=== PATIENT | male | born 1960 | race Caucasian/White ===

== ENCOUNTER 2017-02-27 11:41 | Observation (INO) | payer MEDICARE, OTHER ==
[~2017-02-27] VITALS: Ht 165.1 cm; Wt 97.0 kg
[~2017-02-27 11:41] MED LIST: ACTOS15 MG PO; AMITIZA24 MCG PO; ASPIRIN EC81 MG PO; CATAPRES0.1 MG PO; COREG6.25 MG PO; FENOFIBRIC ACI135 MG PO; GLUCOPHAGE500 MG PO; HCTZ25 MG PO; HUMALOG100 UNIT/1 SQ; HYDROCODON-ACE1 EAC2 PO; ISOSORBIDE MONO30 MG PO; JALYN 0.5-0.41 EACH PO; K-DUR20 MEQ PO; LANTUS100 UNIT/1 SQ; LIPITOR10 MG PO; LOTREL 10-20 M1 EACH PO; LYRICA100 MG PO; MAGOX 400400 MG PO; NICODERM 21MG PA1 EA TD; PEPCID20 MG PO; VALIUM5 MG PO
[2017-02-27 12:09] LABS: BASO # 0.1 10_X3_uL (0.0-0.1); BASO % 0.5 % (0.2-1.2); EOS # 0.2 10_X3_uL (0.0-0.5); EOS % 1.9 % (0.8-7.0); GRAN # 8.3 10_X3_uL (1.8-5.4); GRAN % 64.2 % (34.0-67.9); HEMATOCRIT 50.8 % (40-51); HEMOGLOBIN 17.6 g/dL (13.7-17.5); LYMPH # 3.3 10_X3_uL (1.3-3.6); LYMPH % 25.5 % (21.8-53.1); MEAN CORPUSCULAR HEMOGLOBIN 30.6 pg (27.0-33.0); MEAN CORPUSCULAR HGB CONC 34.6 g/dL (32.0-36.0); MEAN CORPUSCULAR VOLUME 88.2 fL (79-92); MEAN PLATELET VOLUME 11.9 fl (7.5-11.5); MONO % 7.9 % (5.3-12.2); PLATELET COUNT 206 x10_3/uL (163-337); RED BLOOD COUNT 5.76 x10_6/uL (4.6-6.1); RED CELL DISTRIBUTION WIDTH 13.9 % (11.6-14.4); WHITE BLOOD COUNT 12.9 x10_3/uL (4.2-9.1)
[2017-02-27 12:19] LABS: ALBUMIN 3.5 gm/dL (3.4-5.0); BILIRUBIN,TOTAL 0.33 mg/dL (0.0-1.0); CALCIUM 8.9 mg/dL (8.7-10.7); TOTAL PROTEIN 6.7 gm/dL (6.4-8.2)
[2017-02-27 12:33] LABS: URINE BILIRUBIN 1+ (NEGATIVE); URINE BLOOD NEGATIVE (NEGATIVE); URINE KETONE NEGATIVE (NEGATIVE); URINE LEUKOCYTE ESTERASE TRACE (NEGATIVE); URINE NITRATE NEGATIVE (NEGATIVE); URINE PROTEIN 3+ (NEGATIVE)
[2017-02-27 13:08] LABS: URINE GLUCOSE (UA) 1000 mg/dL (NORMAL); URINE SQUAMOUS EPITHELIAL CELL 0-10 /[HPF] (NONE SEEN); URINE WBC 0-5 /[HPF] (0-3)
[2017-02-27 13:09] LABS: URINE BACTERIA TRACE (NONE SEEN); URINE FINE GRANULAR CAST 0-2 /[HPF] (NONE SEEN); URINE MUCUS TRACE
[2017-03-01 06:34] LABS: HEMATOCRIT 49.4 % (40-51); HEMOGLOBIN 16.3 g/dL (13.7-17.5); MEAN CORPUSCULAR HEMOGLOBIN 29.7 pg (27.0-33.0); MEAN CORPUSCULAR VOLUME 90.1 fL (79-92); MEAN PLATELET VOLUME 11.8 fl (7.5-11.5); RED BLOOD COUNT 5.48 x10_6/uL (4.6-6.1); RED CELL DISTRIBUTION WIDTH 13.7 % (11.6-14.4); WHITE BLOOD COUNT 9.3 x10_3/uL (4.2-9.1)
[2017-03-01 06:47] LABS: ALBUMIN 3.2 gm/dL (3.4-5.0); BILIRUBIN,TOTAL 0.23 mg/dL (0.0-1.0); CALCIUM 8.6 mg/dL (8.7-10.7); CREATININE 1.5 mg/dL (0.6-1.3); POTASSIUM 3.8 mmol/L (3.5-5.1)
== END 2017-03-01 16:01 | disposition home or self-care (01) ==
LOC: ER 11:41 → MS 13:00 → UNDODEPER 03-01 13:37 → MS 03-01 16:01
PROVIDERS: ADMIT Family Medicine
DX: R42 Dizziness and giddiness (principal); E11.65 Type 2 diabetes mellitus with hyperglycemia; I10 Essential (primary) hypertension; N28.9 Disorder of kidney and ureter, unspecified; D75.1 Secondary polycythemia; J44.9 Chronic obstructive pulmonary disease, unspecified; R53.1 Weakness; F17.210 Nicotine dependence, cigarettes, uncomplicated; Z79.899 Other long term (current) drug therapy; Z79.891 Long term (current) use of opiate analgesic; Z79.4 Long term (current) use of insulin
CPT/HCPCS: 36415; 71010; 80053; 80061; 81001; 82550; 82553; 82962; 83036; 83605; 83880; 85025; 93005; 96360; 96361; 96372; 99070; 99283; 99285-25; G0378